=== PATIENT | female | born 2005 | race Caucasian/White ===

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

== ENCOUNTER → 2024-11-22 | Outpatient (CLI) | payer BC ==
--- NOTE | 2024-11-22 08:40 | US ---
EXAMINATION TYPE: US mass soft tissue chest/back DATE OF EXAM: 11/22/2024 COMPARISON: NONE CLINICAL INDICATION: Female, 19 years old with history of R60.9 SOFT TISSUE SWELL OF BACK; pt has bee n feeling a mobile lump on her left shoulder blade/back area for a few months now, her Dr told her it was a cyst, no pain TECHNIQUE: Left Shoulder blade/back Area of Palp scanned FINDINGS: No obvious abnormalities seen Normal muscle fibers are present. No suspicious solid or cystic mass or fluid collection on images ob tained. IMPRESSION: As above. Consider repeat imaging with ultrasound or MRI if the area of concern is felt to enlarge and/or becomes painful [facility], , 11/22/2024 8:37 AM
== END | disposition home or self-care (01) ==
LOC: RADUSWWP 08:13
PROVIDERS: ATTEND Pediatrics
DX: R60.9 Edema, unspecified (principal)